=== PATIENT | male | born 1940 | race Caucasian/White ===

== ENCOUNTER → 2024-01-22 07:19 | Outpatient (REF) | payer OTHER, SELFPAY ==
[2024-01-22 08:01] LABS: Urine Albumin Negative (Neg - Trace); Urine Bilirubin 1+ (Negative); Urine Character Clear (Clear); Urine Color Yellow; Urine Glucose Negative (Negative); Urine Ketone Trace (Negative); Urine Leukocyte Negative (Negative); Urine Nitrite Negative (Negative); Urine Occult Blood Negative (Negative); Urine Specific Gravity 1.015 (<1.030); Urine Urobilinogen 2+ (Neg - 1+); Urine pH 6.5 (5.0-9.0)
[2024-01-22 08:18] LABS: % Basophils 0.1 % (0-2); % Immature Granulocytes 0.4 % (0-0.5); % Lymphocytes 12.4 % (20.5-51.1); % Monocytes 5.9 % (1.7-9.3); % Neutrophils 81.2 % (42.2-75.2); Absolute Lymphocytes 0.9 10^3/uL (1.2-3.4); Absolute Monocytes 0.4 10^3/uL (0.1-0.6); Hematocrit 39.8 % (39.0-52.0); Hemoglobin 13.4 g/dL (13.0-18.0); Mean Corp Hgb Conc. 33.7 g/dL (33.0-37.0); Mean Corpuscular Hgb 32.1 pg (27.0-31.0); Mean Corpuscular Volume 95.4 fL (80.0-94.0); Mean Platelet Volume 9.8 fL (7.4-10.4); Nucleated Red Blood Cells % 0 % (-); Platelet Count 202 10^3/uL (130-400); Red Blood Cell Count 4.17 10^6/uL (4.70-6.10); Red Cell Dist. Width 12.4 % (11.5-14.5); White Blood Cell Count 7.4 10^3/uL (4.8-10.8)
[2024-01-22 09:05] LABS: ALT (SGPT) 20 U/L (0-50); AST (SGOT) 28 U/L (17-59); Alkaline Phosphatase 58 U/L (38-126); Blood Urea Nitrogen 28 mg/dl (9-20); Calcium 11.3 mg/dl (8.4-10.2); Carbon Dioxide 27 mmol/L (22-30); Chloride 106 mmol/L (98-107); Glucose 103 mg/dl (70-99); HDL Cholesterol 81 mg/dl; LDL Cholesterol, Calculated 121 mg/dl; Potassium 4.4 mmol/L (3.5-5.1); Sodium 139 mmol/L (135-145); Total Bilirubin 0.9 mg/dl (0.2-1.3); Total Cholesterol 212 mg/dl (50-199); Total Protein 6.2 g/dl (6.3-8.2); Triglyceride 51 mg/dl (10-149); Very Low Density Lipoprotein 10 mg/dl (0-30); eGFR > 60.00
[2024-01-22 10:43] LABS: TSH Reflex To Free T4 1.55 uIU/ml (0.47-4.68)
[2024-01-22 11:12] LABS: Glycohemoglobin (HgbA1c) 5.3 % (4.0-5.6)
[2024-01-23 14:22] LABS: PSA Total 1.1 ng/mL (0.0-4.0)
== END ==
LOC: REG 07:19
PROVIDERS: ATTENDING PHYSICIAN Family Medicine
DX: I10 Essential (primary) hypertension (principal); N40.0 Benign prostatic hyperplasia without lower urinary tract symptoms
CPT/HCPCS: 36415; 80053; 80061; 81003; 83036; 84153; 84154; 84443; 85025

== ENCOUNTER 2024-06-02 06:18 | Emergency (ER) | payer OTHER, SELFPAY ==
[2024-06-02 06:19] VITALS: BP 168/86
[2024-06-02 06:50] LABS: % Basophils 0.8 % (0-2); % Eosinophils 3.1 % (0-6); % Immature Granulocytes 0.3 % (0-0.5); % Lymphocytes 26.2 % (20.5-51.1); % Monocytes 7.9 % (1.7-9.3); % Neutrophils 61.7 % (42.2-75.2); Absolute Basophils 0.1 10^3/uL (0-0.2); Absolute Eosinophils 0.2 10^3/uL (0-0.7); Absolute Lymphocytes 1.6 10^3/uL (1.2-3.4); Absolute Monocytes 0.5 10^3/uL (0.1-0.6); Absolute Neutrophils 3.8 10^3/uL (1.4-6.5); Hematocrit 39.3 % (39.0-52.0); Hemoglobin 13.3 g/dL (13.0-18.0); Mean Corp Hgb Conc. 33.8 g/dL (33.0-37.0); Mean Corpuscular Volume 97.5 fL (80.0-94.0); Nucleated Red Blood Cells % 0 % (-); Platelet Count 213 10^3/uL (130-400); Red Blood Cell Count 4.03 10^6/uL (4.70-6.10); Red Cell Dist. Width 12.9 % (11.5-14.5); White Blood Cell Count 6.2 10^3/uL (4.8-10.8)
[2024-06-02 07:03] LABS: ALT (SGPT) 27 U/L (0-50); AST (SGOT) 32 U/L (17-59); Albumin 3.9 g/dl (3.5-5.0); Alkaline Phosphatase 56 U/L (38-126); Blood Urea Nitrogen 26 mg/dl (9-20); Calcium 10.4 mg/dl (8.4-10.2); Carbon Dioxide 28 mmol/L (22-30); Chloride 107 mmol/L (98-107); Glucose 99 mg/dl (70-99); Potassium 4.2 mmol/L (3.5-5.1); Sodium 141 mmol/L (135-145); Total Bilirubin 0.9 mg/dl (0.2-1.3); Total Protein 6.2 g/dl (6.3-8.2); eGFR > 60.00
--- NOTE | 2024-06-02 08:35 | ED.GENMED ---
History of Present Illness
General
Chief Complaint: Blood Pressure Problem
Source: patient
Exam Limitations: none
Time Seen by Provider: 06/02/24 08:30
Nursing documentation reviewed up to this point in time: agreed with
History of Present Illness
History of Present Illness:
83-year-old male with history of hypertension presents with elevated blood pressure readings from home over the last week. Patient says about a week and a half ago he had hurt his shoulder and went to urgent care and had an elevated blood pressure
reading there so he was told to follow-up. He had previously been on lisinopril 20 mg daily and atenolol 50 mg daily. Patient says that he did have high blood pressure in the office of his primary last week, 170s over 90s. He was told to increase
his lisinopril to 30 mg by taking 1-1/2 tablets daily which she has been doing and monitoring his blood pressure over the past week. His readings are anywhere from 150s over 80s to 180s over 100. He is asymptomatic. Patient has not had any chest
pain, shortness of breath, vision changes, headache. Patient says this morning his reading was 170/101 and he decided that he should come get checked out because he thought this was too elevated. Again he is having no symptoms.
Past History
Past History
ED Past Medical History: HTN
Social History
Tobacco: Non-smoker
Alcohol: None
Review of Systems
Review of Systems
Allergies reviewed?: Yes
All Other Systems: Not applicable
Phy Exam
Physical Exam
Physical Exam:
GENERAL: Alert , in no apparent distress
NECK: Supple
ENT: o/p clr, mmm.
CARDIAC: Regular rate and rhythm .
LUNGS: Clear breath sounds bilaterally, no acute respiratory distress, no wheezes/rales/rhonchi
ABDOMEN: Soft, without focal tenderness, no r/g, no cvat, normal bowel sounds
NEUROLOGICAL: Alert and oriented, no focal neuro deficits
SKIN: Warm and dry, skin intact.
MUSCULOSKELETAL: No edema, well perfused. neg rich's sign
PSYCH: Normal and appropriate interaction.
Course
Orders/Labs/Results
Orders:
Orders
06/02/24 06:28
Complete Blood Count/With Diff Urgent
Comprehensive Metabolic Panel Urgent
06/02/24 08:41
Electrocardiogram (*1) Urgent
Reason for Study: Hypertension, Benign
EKG- Treatment ONCE
Abnormal Lab Results
06/02/24
06:28
RBC 4.03 L 10^6/uL
(4.70-6.10)
MCV 97.5 H fL
(80.0-94.0)
MCH 33.0 H pg
(27.0-31.0)
BUN 26 H mg/dl
(9-20)
Calcium 10.4 H mg/dl
(8.4-10.2)
Total Protein 6.2 L g/dl
(6.3-8.2)
06/02/24 06:28
06/02/24 06:28
Vital Signs
Pulse: 52
Blood pressure: 173/85
Initial and Last Documented VS:
Initial Vital Signs
Temp Pulse Resp BP Pulse Ox
36.6 C 53 16 168/86 96
06/02/24 06:19 06/02/24 06:19 06/02/24 06:19 06/02/24 06:19 06/02/24 06:19
Last Documented Vital Signs
Temp Pulse Resp BP Pulse Ox
36.6 C 52 16 173/85 96
06/02/24 06:19 06/02/24 08:50 06/02/24 06:19 06/02/24 08:50 06/02/24 06:19
MDM/Problems Addressed
Differential Diagnosis Includes:
Asymptomatic hypertension, kidney disease
MDM/Problems Addressed:
83-year-old male with a history of hypertension on atenolol and lisinopril was recently had some elevated blood pressure readings without symptoms. Patient was told to increase his lisinopril last week and has been monitoring with readings 150s to
180s over 100s. Patient says he is completely asymptomatic but decided to come in this morning when his last numbers were 170/100. Patient did take his meds today.
He is not having any chest pain, headache, shortness of breath, vision changes.
On exam the patient is well-appearing, has a blood pressure repeated by me 173/85. His heart rate is 55. Which is baseline for him and he does take a beta-glayds.
I reached out to his family doctor to discuss increasing the lisinopril to 40 mg which is a more standard dose and then having a repeat evaluation next week
i spoke with dr. braun who agreed
ekg reviewed, sinus mony with 1 st degree block, no ischemic changes; dc home
*Critical Care Note
Total Time (30-74mins, 75-104mins- exclusive of procedures): Not Applicable
ED Attending Note
-
Portions of this chart may have been created with voice recognition software.� Occasional wrong word or��sound alike� substitutions may have occurred due to the inherent limitations of voice recognition software.
Discharge Plan
Departure
Patient Disposition: Home (Routine Discharge)
Date of Disposition: 06/02/24
Time of Disposition: 08:50
Patient with high blood pressure during this ER visit?: Yes
Condition: Fair
Covid-19: Not Applicable
Discharge Problem:
Hypertension
Instructions: High Blood Pressure (DC)
Prescriptions:
No Action
levofloxacin [Levaquin] 500 MG tablet
500 mg PO DAILY Qty: 9 0RF
acetaminophen-codeine 1 TABLET tablet
1 tab PO Q4HPRN PRN (Reason: PAIN) Qty: 11 0RF
Activity Restrictions/Additional Instructions:
Dr. Braun wants you to increase your lisinopril to 40 mg once a day. You can take an extra 10 mg and you get home. Keep a log of your blood pressure readings and see him in a couple of weeks. If you are still running high next week please give
them a call to discuss. If you develop symptoms like severe headache vision changes, shortness of breath, chest pain then you should be seen in the emergency department but otherwise for asymptomatic hypertension follow-up with your family doctor
is encouraged.
Interventions
Interventions:
*Risk Screen - Suicide Last Done: 06/02/24 06:19
*General Assessment Last Done: 06/02/24 06:19
*Neglect/Abuse Screening Last Done: 06/02/24 06:19
*ED COVID-19 Vaccine History Last Done: 06/02/24 06:19
Discharge Date and Time
Print Language: [place]
== END 2024-06-02 09:30 | disposition home or self-care (01) ==
LOC: EMR 06:18
PROVIDERS: EMERGENCY PHYSICIAN Emergency Medicine; FAMILY PHYSICIAN Family Medicine
DX: I10 Essential (primary) hypertension (principal); Z79.899 Other long term (current) drug therapy
CPT/HCPCS: 99284; 80053; 85025; 93005